=== PATIENT | male | born 1980 | race Caucasian/White ===

== ENCOUNTER 2019-07-15 17:53 | Emergency (ER) | payer OTHER ==
[~2019-07-15] VITALS: Ht 170.2 cm; Wt 72.6 kg
[2019-07-15] MEDS ORDERED: fentaNYL CITRATE 100 MCG/2 ML VL IV ONE (20:15)
[2019-07-15] MEDS ORDERED: KETOROLAC TROMETH 30 MG/ML 1ML VIAL IV ONE (20:15)
[2019-07-15 22:01] VITALS: BP 118/78
== END 2019-07-15 22:50 | disposition home or self-care (01) ==
LOC: EEVIPCON 17:53 → ER 17:53
DX: S01.01XA Laceration without foreign body of scalp, initial encounter (principal); S05.12XA Contusion of eyeball and orbital tissues, left eye, initial encounter; Y04.2XXA Assault by strike against or bumped into by another person, initial encounter; Y93.89 Activity, other specified; Y92.89 Other specified places as the place of occurrence of the external cause; Y99.8 Other external cause status
CPT/HCPCS: 12002; 70450; 70486; 71045; 72125; 96374; 96375; 99284; J1885; J3010